=== PATIENT | male | born 1945 | race Asian ===

== ENCOUNTER 2023-06-03 13:31 | Emergency (ER) | payer BC, MEDICAID ==
[~2023-06-03] VITALS: Ht 167.6 cm; Wt 68.9 kg
[~2023-06-03 13:31] MED LIST: PRED20TA PO
[2023-06-03 14:03] VITALS: BP_SYST 139; PULSE 74; RESP 22; TEMP 98.3; O2SAT 99
[2023-06-03 15:51] VITALS: BP_SYST 139; PULSE 74; RESP 22; TEMP 98.3; O2SAT 99
== END 2023-06-03 15:52 | disposition home or self-care (01) ==
LOC: SED 13:31
DX: S00.03XA Contusion of scalp, initial encounter (principal); I10 Essential (primary) hypertension; Z79.899 Other long term (current) drug therapy; W22.8XXA Striking against or struck by other objects, initial encounter; Y93.89 Activity, other specified; Y92.89 Other specified places as the place of occurrence of the external cause; Y99.8 Other external cause status
CPT/HCPCS: 70450-TC; 76376; 99284

== ENCOUNTER 2023-06-09 15:10 | Inpatient (IN) | payer BC, MEDICAID ==
[~2023-06-09] VITALS: Ht 162.6 cm; Wt 113.9 kg
[2023-06-09 15:10] VITALS: BP_SYST 147; PULSE 107; RESP 20; TEMP 98.7; O2SAT 96
[2023-06-09 15:56] LABS: HEMOGLOBIN 14.2 g/dL (14.0-18.0); RED CELL DISTRIBUTION WIDTH 13.8 % (9.0-15.0)
[2023-06-09 16:02] LABS: BASOPHILS # (AUTO) 0.3 K/uL (0.0-0.2); BASOPHILS % (AUTO) 3.7 % (0.0-2.0); EOSINOPHILS # (AUTO) 0.4 K/uL (0.0-0.4); EOSINOPHILS % (AUTO) 5.2 % (0.0-4.0); HEMATOCRIT 40.8 % (36-54); LYMPHOCYTES % (AUTO) 13.5 % (20.5-51.5); MEAN CORPUSCULAR HEMOGLOBIN 34 pg (27-31); MEAN CORPUSCULAR HGB CONC 35 % (32-36); MEAN CORPUSCULAR VOLUME 98 fL (79.0-98.0); MONOCYTES # (AUTO) 0.4 K/uL (0.0-1.0); NEUTROPHILS # (AUTO) 5.2 K/uL (1.8-7.7); NEUTROPHILS % (AUTO) 71.6 % (40.0-70.0); PLATELET COUNT (AUTO) 213 K/uL (130-430); RED BLOOD CELL COUNT(AUTO) 4.16 MIL/uL (4.2-6.2); WHITE BLOOD COUNT (AUTO) 7.3 K/uL (4.8-10.8)
[2023-06-09 16:17] LABS: CHLORIDE 104 mmol/L (98-107); CREATININE 1.52 mg/dL (0.55-1.30); POTASSIUM 4.2 mmol/L (3.5-5.1); SODIUM SERUM 140 mmol/L (136-145)
[2023-06-09 16:30] LABS: ANION GAP 9 (5-15); CALCIUM 8.6 mg/dL (8.4-11.0); CARBON DIOXIDE 27 mmol/L (23-29); GLUCOSE 95 mg/dL (74-106)
[2023-06-09 16:34] LABS: UREA NITROGEN, BLOOD 23 mg/dL (8-21)
[2023-06-09] MEDS ORDERED: cefTRIAXone 1 GM in D5W 50 ML IV ONE (17:15)
[2023-06-09] MEDS ORDERED: hydrALAZINE HCL 20 MG/ML VIAL IVP PRN (17:45)
[2023-06-09] MEDS ORDERED: ALEN70TA27 PO (18:07)
[2023-06-09] MEDS ORDERED: AMLO5TAB92 PO (18:07)
[2023-06-09] MEDS ORDERED: VITA-285 PO (18:07)
[2023-06-09] MEDS ORDERED: TAMS0.4C96 PO (18:07)
[2023-06-09] MEDS ORDERED: ASCO500T20 PO (18:08)
[2023-06-09] MEDS ORDERED: UBID50TA3 PO (18:11)
[2023-06-09] MEDS ORDERED: [UNRECOGNIZED DRUG - CODE] PO (18:11)
[2023-06-09] MEDS ORDERED: ASCO500C18 PO (18:11)
[2023-06-09] MEDS ORDERED: cefTRIAXone 1 GM VIAL ONE (18:26)
[2023-06-09] MEDS: NACL 0.9% 1,000 ML IV SCH (18:31)
[2023-06-09] MEDS ORDERED: AZITHROMYCIN 500 MG/VIAL (ZITHROMAX) IV ONE (19:22)
[2023-06-09] MEDS: AZITHROMYCIN 500 MG in NS 250 ML IV SCH (19:23)
[2023-06-09 19:28] LABS: INFLUENZA TYPE A Negative (NEGATIVE); INFLUENZA TYPE B NEGATIVE (NEGATIVE)
[2023-06-09 19:38] LABS: RESPIRATORY SYNCYTIAL VIRUS NEGATIVE (NEGATIVE)
[2023-06-09 21:15] VITALS: BP_SYST 141; PULSE 81; RESP 20; TEMP 100.4; O2SAT 100; O2SAT 98
[2023-06-09] MEDS ORDERED: ONDANSETRON HCL 4 MG/2 ML VIAL IVP PRN (22:45)
[2023-06-09] MEDS ORDERED: HYDROcodone/ACETAMIN 5-325 MG TAB (NORCO/ VICODIN) PO PRN (22:45)
[2023-06-09] MEDS ORDERED: MORPHINE 4 MG INJ. 4 MG/ML VIAL IVP PRN (22:45)
[2023-06-09] MEDS ORDERED: HYDROcodone/ACETAMIN 10-325 MG TAB PO PRN (22:45)
[2023-06-09] MEDS: IPRATROPIUM/ALBUTEROL SULFATE 3 ML AMPUL.NEB (DUONEB) INH SCH (22:45)
[2023-06-09] MEDS ORDERED: NALOXONE HCL 0.4 MG/ML AMP (NARCAN) IVP PRN ×2 (22:45)
[2023-06-09 23:30] VITALS: BP_SYST 146; PULSE 89; O2SAT 99
[2023-06-09 23:40] VITALS: O2SAT 99
[2023-06-09] MEDS ORDERED: IPRATROPIUM/ALBUTEROL SULFATE 3 ML AMPUL.NEB (DUONEB) ONE (23:57)
[2023-06-09] MEDS: guaiFENesin 200 MG/10 ML UDC PO SCH (23:57)
[2023-06-09] MEDS: ASCORBIC ACID 500 MG TABLET PO SCH (23:58)
[2023-06-10] VITALS (9 sets, daily range): BP systolic 132–154; PULSE 78–114; RESP 16–20; TEMP 97.5–98.8; O2SAT 94–100
[2023-06-10] MEDS ORDERED: cefTRIAXone 1 GM IVPB PREMIX 50 ML IV ONE (00:24)
[2023-06-10] MEDS: guaiFENesin 200 MG/10 ML UDC PO SCH ×4 (00:30→18:53)
[2023-06-10] MEDS: cefTRIAXone 1 GM in D5W 50 ML IV SCH ×2 (00:32→23:48)
[2023-06-10] MEDS: NACL 0.9% 1,000 ML IV SCH ×3 (01:16→23:48)
[2023-06-10 05:42] LABS: BASOPHILS # (AUTO) 0.1 K/uL (0.0-0.2); BASOPHILS % (AUTO) 0.7 % (0.0-2.0); EOSINOPHILS # (AUTO) 0.3 K/uL (0.0-0.4); EOSINOPHILS % (AUTO) 3.4 % (0.0-4.0); HEMATOCRIT 39.7 % (36-54); HEMOGLOBIN 13.5 g/dL (14.0-18.0); LYMPHOCYTES # (AUTO) 1.9 K/uL (1.0-5.5); LYMPHOCYTES % (AUTO) 21.2 % (20.5-51.5); MEAN CORPUSCULAR HEMOGLOBIN 34 pg (27-31); MEAN CORPUSCULAR HGB CONC 34 % (32-36); MEAN CORPUSCULAR VOLUME 100 fL (79.0-98.0); MONOCYTES % (AUTO) 11.5 % (1.7-9.3); NEUTROPHILS # (AUTO) 5.6 K/uL (1.8-7.7); NEUTROPHILS % (AUTO) 63.2 % (40.0-70.0); PLATELET COUNT (AUTO) 186 K/uL (130-430); RED BLOOD CELL COUNT(AUTO) 3.99 MIL/uL (4.2-6.2); RED CELL DISTRIBUTION WIDTH 14.1 % (9.0-15.0); WHITE BLOOD COUNT (AUTO) 8.9 K/uL (4.8-10.8)
[2023-06-10 06:03] LABS: ALANINE AMINOTRANSFERASE 27 U/L (12-78); ALBUMIN 3.5 g/dL (3.4-4.8); ANION GAP 11 (5-15); ASPARTATE AMINOTRANSFERASE 26 U/L (10-37); CALCIUM 8.6 mg/dL (8.4-11.0); CARBON DIOXIDE 25 mmol/L (23-29); CHLORIDE 102 mmol/L (98-107); CREATININE 1.13 mg/dL (0.55-1.30); GLUCOSE 95 mg/dL (74-106); POTASSIUM 4.3 mmol/L (3.5-5.1); SODIUM SERUM 138 mmol/L (136-145); TOTAL BILIRUBIN 0.7 mg/dL (0.0-1.0); TOTAL PROTEIN, SERUM 7.6 g/dL (6.4-8.3); UREA NITROGEN, BLOOD 18 mg/dL (8-21)
[2023-06-10] MEDS: IPRATROPIUM/ALBUTEROL SULFATE 3 ML AMPUL.NEB (DUONEB) INH SCH ×2 (07:23→15:59)
[2023-06-10] MEDS: TAMSULOSIN HCL 0.4 MG CAP PO SCH (08:39)
[2023-06-10] MEDS: ASCORBIC ACID 500 MG TABLET PO SCH (08:39)
[2023-06-10] MEDS: amLODIPine BESYLATE 5 MG TABLET PO SCH (08:40)
[2023-06-10] MEDS: AZITHROMYCIN 500 MG in NS 250 ML IV SCH (18:54)
[2023-06-11] VITALS (7 sets, daily range): BP systolic 115–146; PULSE 87–98; RESP 16–22; TEMP 97.7–100.8; O2SAT 95–99
[2023-06-11] MEDS: guaiFENesin 200 MG/10 ML UDC PO SCH ×5 (00:03→23:35)
[2023-06-11] MEDS: IPRATROPIUM/ALBUTEROL SULFATE 3 ML AMPUL.NEB (DUONEB) INH SCH ×4 (00:13→23:38)
[2023-06-11 05:39] LABS: ERYTHROCYTE SEDIMENTATION RATE 27 MM/HR (0-15)
[2023-06-11 05:45] LABS: BASOPHILS % (AUTO) 0.7 % (0.0-2.0); EOSINOPHILS # (AUTO) 0.4 K/uL (0.0-0.4); EOSINOPHILS % (AUTO) 6.1 % (0.0-4.0); HEMATOCRIT 36.8 % (36-54); HEMOGLOBIN 12.6 g/dL (14.0-18.0); LYMPHOCYTES # (AUTO) 1.5 K/uL (1.0-5.5); LYMPHOCYTES % (AUTO) 22.3 % (20.5-51.5); MEAN CORPUSCULAR HEMOGLOBIN 34 pg (27-31); MEAN CORPUSCULAR HGB CONC 34 % (32-36); MEAN CORPUSCULAR VOLUME 99 fL (79.0-98.0); MONOCYTES # (AUTO) 0.6 K/uL (0.0-1.0); MONOCYTES % (AUTO) 8.4 % (1.7-9.3); NEUTROPHILS # (AUTO) 4.1 K/uL (1.8-7.7); NEUTROPHILS % (AUTO) 62.5 % (40.0-70.0); PLATELET COUNT (AUTO) 167 K/uL (130-430); RED BLOOD CELL COUNT(AUTO) 3.73 MIL/uL (4.2-6.2); RED CELL DISTRIBUTION WIDTH 13.6 % (9.0-15.0); WHITE BLOOD COUNT (AUTO) 6.6 K/uL (4.8-10.8)
[2023-06-11 06:07] LABS: ANION GAP 10 (5-15); CALCIUM 8.3 mg/dL (8.4-11.0); CARBON DIOXIDE 25 mmol/L (23-29); CHLORIDE 105 mmol/L (98-107); CREATININE 1.05 mg/dL (0.55-1.30); GLUCOSE 105 mg/dL (74-106); POTASSIUM 3.9 mmol/L (3.5-5.1); SODIUM SERUM 140 mmol/L (136-145); UREA NITROGEN, BLOOD 12 mg/dL (8-21)
[2023-06-11] MEDS: NACL 0.9% 1,000 ML IV SCH ×2 (07:36→11:35)
[2023-06-11] MEDS: ASCORBIC ACID 500 MG TABLET PO SCH (10:01)
[2023-06-11] MEDS: TAMSULOSIN HCL 0.4 MG CAP PO SCH (10:01)
[2023-06-11] MEDS: amLODIPine BESYLATE 5 MG TABLET PO SCH (10:02)
[2023-06-11] MEDS: AZITHROMYCIN 500 MG in NS 250 ML IV SCH (17:57)
[2023-06-11] MEDS: ACETAMINOPHEN 325 MG TABLET PO PRN (20:52)
[2023-06-11] MEDS: cefTRIAXone 1 GM in D5W 50 ML IV SCH (23:35)
[2023-06-12] VITALS (11 sets, daily range): BP systolic 120–148; PULSE 92–121; RESP 14–20; TEMP 98.3–100.9; O2SAT 90–100
[2023-06-12 05:46] LABS: ERYTHROCYTE SEDIMENTATION RATE 20 MM/HR (0-15)
[2023-06-12 05:54] LABS: BASOPHILS % (AUTO) 0.8 % (0.0-2.0); EOSINOPHILS # (AUTO) 0.4 K/uL (0.0-0.4); EOSINOPHILS % (AUTO) 6.6 % (0.0-4.0); HEMATOCRIT 34.7 % (36-54); HEMOGLOBIN 11.9 g/dL (14.0-18.0); LYMPHOCYTES # (AUTO) 1.4 K/uL (1.0-5.5); LYMPHOCYTES % (AUTO) 23.2 % (20.5-51.5); MEAN CORPUSCULAR HEMOGLOBIN 34 pg (27-31); MEAN CORPUSCULAR HGB CONC 34 % (32-36); MEAN CORPUSCULAR VOLUME 99 fL (79.0-98.0); MONOCYTES # (AUTO) 0.6 K/uL (0.0-1.0); MONOCYTES % (AUTO) 9.8 % (1.7-9.3); NEUTROPHILS # (AUTO) 3.6 K/uL (1.8-7.7); NEUTROPHILS % (AUTO) 59.6 % (40.0-70.0); PLATELET COUNT (AUTO) 154 K/uL (130-430); RED BLOOD CELL COUNT(AUTO) 3.52 MIL/uL (4.2-6.2); RED CELL DISTRIBUTION WIDTH 13.6 % (9.0-15.0)
[2023-06-12 06:27] LABS: ANION GAP 11 (5-15); CALCIUM 8.1 mg/dL (8.4-11.0); CARBON DIOXIDE 24 mmol/L (23-29); CHLORIDE 103 mmol/L (98-107); CREATININE 1.07 mg/dL (0.55-1.30); GLUCOSE 97 mg/dL (74-106); POTASSIUM 3.5 mmol/L (3.5-5.1); SODIUM SERUM 138 mmol/L (136-145); UREA NITROGEN, BLOOD 13 mg/dL (8-21)
[2023-06-12] MEDS: NACL 0.9% 1,000 ML IV SCH (06:37)
[2023-06-12] MEDS: guaiFENesin 200 MG/10 ML UDC PO SCH ×3 (06:37→20:31)
[2023-06-12] MEDS: IPRATROPIUM/ALBUTEROL SULFATE 3 ML AMPUL.NEB (DUONEB) INH SCH ×4 (07:16→20:51)
[2023-06-12] MEDS ORDERED: LEVO250T73 PO (09:58)
[2023-06-12] MEDS: TAMSULOSIN HCL 0.4 MG CAP PO SCH (10:20)
[2023-06-12] MEDS: ASCORBIC ACID 500 MG TABLET PO SCH (10:20)
[2023-06-12] MEDS: amLODIPine BESYLATE 5 MG TABLET PO SCH (10:20)
[2023-06-12] MEDS: ACETAMINOPHEN 325 MG TABLET PO PRN ×2 (11:24→22:58)
[2023-06-12] MEDS: AZITHROMYCIN 500 MG in NS 250 ML IV SCH (20:31)
[2023-06-12] MEDS: cefTRIAXone 1 GM in D5W 50 ML IV SCH (22:58)
[2023-06-13] VITALS (13 sets, daily range): BP systolic 108–141; PULSE 76–98; RESP 16–20; TEMP 98.1–100.2; O2SAT 6–98
[2023-06-13] MEDS: IPRATROPIUM/ALBUTEROL SULFATE 3 ML AMPUL.NEB (DUONEB) INH SCH ×6 (03:56→23:27)
[2023-06-13] MEDS: guaiFENesin 200 MG/10 ML UDC PO SCH ×4 (05:40→18:37)
[2023-06-13 07:03] LABS: ANION GAP 9 (5-15); CALCIUM 7.8 mg/dL (8.4-11.0); CARBON DIOXIDE 25 mmol/L (23-29); CHLORIDE 102 mmol/L (98-107); CREATININE 0.99 mg/dL (0.55-1.30); GLUCOSE 98 mg/dL (74-106); SODIUM SERUM 136 mmol/L (136-145); UREA NITROGEN, BLOOD 14 mg/dL (8-21)
[2023-06-13 07:22] LABS: BASOPHILS % (AUTO) 0.6 % (0.0-2.0); EOSINOPHILS # (AUTO) 0.2 K/uL (0.0-0.4); EOSINOPHILS % (AUTO) 2.9 % (0.0-4.0); HEMATOCRIT 35.5 % (36-54); HEMOGLOBIN 12.2 g/dL (14.0-18.0); LYMPHOCYTES # (AUTO) 1.6 K/uL (1.0-5.5); LYMPHOCYTES % (AUTO) 26.5 % (20.5-51.5); MEAN CORPUSCULAR HEMOGLOBIN 34 pg (27-31); MEAN CORPUSCULAR HGB CONC 34 % (32-36); MEAN CORPUSCULAR VOLUME 99 fL (79.0-98.0); MONOCYTES # (AUTO) 0.7 K/uL (0.0-1.0); MONOCYTES % (AUTO) 11.2 % (1.7-9.3); NEUTROPHILS # (AUTO) 3.5 K/uL (1.8-7.7); NEUTROPHILS % (AUTO) 58.8 % (40.0-70.0); PLATELET COUNT (AUTO) 149 K/uL (130-430); RED CELL DISTRIBUTION WIDTH 13.3 % (9.0-15.0)
[2023-06-13 07:36] LABS: ERYTHROCYTE SEDIMENTATION RATE 71 MM/HR (0-15)
[2023-06-13] MEDS: amLODIPine BESYLATE 5 MG TABLET PO SCH (09:37)
[2023-06-13] MEDS: TAMSULOSIN HCL 0.4 MG CAP PO SCH (09:37)
[2023-06-13] MEDS: ASCORBIC ACID 500 MG TABLET PO SCH (09:38)
[2023-06-13] MEDS: ACETAMINOPHEN 325 MG TABLET PO PRN ×2 (12:15→20:59)
[2023-06-13] MEDS: PIPERACILLIN/TAZO 3.375/DEX-IS 50 ML IV SCH (16:20)
[2023-06-13] MEDS ORDERED: POLYETHYLENE GLYCOL 3350, 17 GM/ POWD.PACK PO ONE (18:45)
[2023-06-13] MEDS: DOCUSATE SODIUM 100 MG CAPSULE PO SCH (21:00)
[2023-06-14] VITALS (10 sets, daily range): BP systolic 120–134; PULSE 82–93; RESP 18–20; TEMP 98–98.7; O2SAT 94–98
[2023-06-14] MEDS: guaiFENesin 200 MG/10 ML UDC PO SCH ×4 (00:06→17:40)
[2023-06-14] MEDS: PIPERACILLIN/TAZO 3.375/DEX-IS 50 ML IV SCH ×3 (00:06→15:27)
[2023-06-14] MEDS: IPRATROPIUM/ALBUTEROL SULFATE 3 ML AMPUL.NEB (DUONEB) INH SCH ×6 (03:41→23:35)
[2023-06-14 06:44] LABS: BASOPHILS % (AUTO) 0.5 % (0.0-2.0); EOSINOPHILS # (AUTO) 0.6 K/uL (0.0-0.4); EOSINOPHILS % (AUTO) 11.5 % (0.0-4.0); HEMATOCRIT 32.4 % (36-54); HEMOGLOBIN 11.2 g/dL (14.0-18.0); LYMPHOCYTES # (AUTO) 1.9 K/uL (1.0-5.5); LYMPHOCYTES % (AUTO) 39.7 % (20.5-51.5); MEAN CORPUSCULAR HEMOGLOBIN 34 pg (27-31); MEAN CORPUSCULAR HGB CONC 35 % (32-36); MEAN CORPUSCULAR VOLUME 97 fL (79.0-98.0); MONOCYTES # (AUTO) 0.5 K/uL (0.0-1.0); MONOCYTES % (AUTO) 11.3 % (1.7-9.3); NEUTROPHILS # (AUTO) 1.8 K/uL (1.8-7.7); PLATELET COUNT (AUTO) 142 K/uL (130-430); RED BLOOD CELL COUNT(AUTO) 3.35 MIL/uL (4.2-6.2); RED CELL DISTRIBUTION WIDTH 13.4 % (9.0-15.0); WHITE BLOOD COUNT (AUTO) 4.8 K/uL (4.8-10.8)
[2023-06-14 07:21] LABS: ALANINE AMINOTRANSFERASE 36 U/L (12-78); ALBUMIN 2.6 g/dL (3.4-4.8); ANION GAP 9 (5-15); ASPARTATE AMINOTRANSFERASE 32 U/L (10-37); CARBON DIOXIDE 25 mmol/L (23-29); CHLORIDE 102 mmol/L (98-107); CREATININE 1.22 mg/dL (0.55-1.30); GLUCOSE 109 mg/dL (74-106); POTASSIUM 3.7 mmol/L (3.5-5.1); SODIUM SERUM 136 mmol/L (136-145); TOTAL BILIRUBIN 0.5 mg/dL (0.0-1.0); TOTAL PROTEIN, SERUM 6.4 g/dL (6.4-8.3); UREA NITROGEN, BLOOD 17 mg/dL (8-21)
[2023-06-14] MEDS: amLODIPine BESYLATE 5 MG TABLET PO SCH (09:13)
[2023-06-14] MEDS: ASCORBIC ACID 500 MG TABLET PO SCH (09:13)
[2023-06-14] MEDS: POLYETHYLENE GLYCOL 3350, 17 GM/ POWD.PACK PO SCH (09:14)
[2023-06-14] MEDS: TAMSULOSIN HCL 0.4 MG CAP PO SCH (09:14)
[2023-06-14] MEDS: DOCUSATE SODIUM 100 MG CAPSULE PO SCH ×2 (09:14→21:36)
[2023-06-14] MEDS ORDERED: IPRATROPIUM/ALBUTEROL SULFATE 3 ML AMPUL.NEB (DUONEB) ONE (09:36)
[2023-06-15] VITALS (12 sets, daily range): BP systolic 120–154; PULSE 87–101; RESP 16–20; TEMP 97.6–98.8; O2SAT 91–100
[2023-06-15] MEDS: guaiFENesin 200 MG/10 ML UDC PO SCH ×3 (00:16→14:17)
[2023-06-15] MEDS: PIPERACILLIN/TAZO 3.375/DEX-IS 50 ML IV SCH ×3 (00:16→15:35)
[2023-06-15] MEDS: IPRATROPIUM/ALBUTEROL SULFATE 3 ML AMPUL.NEB (DUONEB) INH SCH ×6 (03:40→23:24)
[2023-06-15 08:05] LABS: ANION GAP 8 (5-15); CALCIUM 7.6 mg/dL (8.4-11.0); CARBON DIOXIDE 26 mmol/L (23-29); CHLORIDE 100 mmol/L (98-107); CREATININE 0.88 mg/dL (0.55-1.30); GLUCOSE 89 mg/dL (74-106); POTASSIUM 3.9 mmol/L (3.5-5.1); SODIUM SERUM 134 mmol/L (136-145); UREA NITROGEN, BLOOD 14 mg/dL (8-21)
[2023-06-15 08:18] LABS: BASOPHILS % (AUTO) 0.7 % (0.0-2.0); EOSINOPHILS # (AUTO) 0.5 K/uL (0.0-0.4); HEMATOCRIT 34.2 % (36-54); HEMOGLOBIN 11.9 g/dL (14.0-18.0); LYMPHOCYTES # (AUTO) 1.7 K/uL (1.0-5.5); LYMPHOCYTES % (AUTO) 32.6 % (20.5-51.5); MEAN CORPUSCULAR HEMOGLOBIN 34 pg (27-31); MEAN CORPUSCULAR HGB CONC 35 % (32-36); MEAN CORPUSCULAR VOLUME 97 fL (79.0-98.0); MONOCYTES # (AUTO) 0.5 K/uL (0.0-1.0); MONOCYTES % (AUTO) 9.9 % (1.7-9.3); NEUTROPHILS # (AUTO) 2.5 K/uL (1.8-7.7); NEUTROPHILS % (AUTO) 46.8 % (40.0-70.0); PLATELET COUNT (AUTO) 169 K/uL (130-430); RED BLOOD CELL COUNT(AUTO) 3.52 MIL/uL (4.2-6.2); RED CELL DISTRIBUTION WIDTH 13.7 % (9.0-15.0); WHITE BLOOD COUNT (AUTO) 5.3 K/uL (4.8-10.8)
[2023-06-15 08:21] LABS: ERYTHROCYTE SEDIMENTATION RATE 63 MM/HR (0-15)
[2023-06-15] MEDS ORDERED: SODIUM PHOSPHATE,MONO-DIBASIC 133 ML ENEMA RC ONE (09:00)
[2023-06-15] MEDS: POLYETHYLENE GLYCOL 3350, 17 GM/ POWD.PACK PO SCH (09:08)
[2023-06-15] MEDS: TAMSULOSIN HCL 0.4 MG CAP PO SCH (09:08)
[2023-06-15] MEDS: DOCUSATE SODIUM 100 MG CAPSULE PO SCH ×2 (09:08→22:08)
[2023-06-15] MEDS: amLODIPine BESYLATE 5 MG TABLET PO SCH (09:17)
[2023-06-15] MEDS: ASCORBIC ACID 500 MG TABLET PO SCH (09:29)
[2023-06-16] VITALS (13 sets, daily range): BP systolic 112–138; PULSE 75–90; RESP 14–18; TEMP 97.6–98.6; O2SAT 95–98
[2023-06-16] MEDS: PIPERACILLIN/TAZO 3.375/DEX-IS 50 ML IV SCH ×3 (00:11→17:27)
[2023-06-16] MEDS: guaiFENesin 200 MG/10 ML UDC PO SCH ×4 (00:15→19:03)
[2023-06-16] MEDS: IPRATROPIUM/ALBUTEROL SULFATE 3 ML AMPUL.NEB (DUONEB) INH SCH ×6 (03:00→23:56)
[2023-06-16 07:23] LABS: BASOPHILS % (AUTO) 0.5 % (0.0-2.0); EOSINOPHILS # (AUTO) 0.4 K/uL (0.0-0.4); EOSINOPHILS % (AUTO) 6.7 % (0.0-4.0); HEMATOCRIT 35.6 % (36-54); HEMOGLOBIN 12.4 g/dL (14.0-18.0); LYMPHOCYTES # (AUTO) 1.4 K/uL (1.0-5.5); LYMPHOCYTES % (AUTO) 22.2 % (20.5-51.5); MEAN CORPUSCULAR HEMOGLOBIN 34 pg (27-31); MEAN CORPUSCULAR HGB CONC 35 % (32-36); MEAN CORPUSCULAR VOLUME 97 fL (79.0-98.0); MONOCYTES # (AUTO) 0.4 K/uL (0.0-1.0); NEUTROPHILS % (AUTO) 63.6 % (40.0-70.0); PLATELET COUNT (AUTO) 192 K/uL (130-430); RED BLOOD CELL COUNT(AUTO) 3.67 MIL/uL (4.2-6.2); RED CELL DISTRIBUTION WIDTH 13.6 % (9.0-15.0); WHITE BLOOD COUNT (AUTO) 6.2 K/uL (4.8-10.8)
[2023-06-16 07:27] LABS: ANION GAP 10 (5-15); CARBON DIOXIDE 24 mmol/L (23-29); CHLORIDE 100 mmol/L (98-107); CREATININE 1.02 mg/dL (0.55-1.30); GLUCOSE 85 mg/dL (74-106); POTASSIUM 3.9 mmol/L (3.5-5.1); SODIUM SERUM 134 mmol/L (136-145); UREA NITROGEN, BLOOD 13 mg/dL (8-21)
[2023-06-16 07:42] LABS: ERYTHROCYTE SEDIMENTATION RATE 72 MM/HR (0-15)
[2023-06-16] MEDS: amLODIPine BESYLATE 5 MG TABLET PO SCH (09:03)
[2023-06-16] MEDS: ASCORBIC ACID 500 MG TABLET PO SCH (09:03)
[2023-06-16] MEDS: POLYETHYLENE GLYCOL 3350, 17 GM/ POWD.PACK PO SCH (09:03)
[2023-06-16] MEDS: DOCUSATE SODIUM 100 MG CAPSULE PO SCH ×2 (09:04→20:55)
[2023-06-16] MEDS: TAMSULOSIN HCL 0.4 MG CAP PO SCH (09:04)
[2023-06-17] VITALS (12 sets, daily range): BP systolic 108–137; PULSE 74–90; RESP 16–20; TEMP 96.5–98; O2SAT 93–98
[2023-06-17] MEDS: guaiFENesin 200 MG/10 ML UDC PO SCH ×5 (00:31→23:45)
[2023-06-17] MEDS: PIPERACILLIN/TAZO 3.375/DEX-IS 50 ML IV SCH ×4 (00:31→23:45)
[2023-06-17] MEDS: IPRATROPIUM/ALBUTEROL SULFATE 3 ML AMPUL.NEB (DUONEB) INH SCH ×6 (03:24→23:10)
[2023-06-17 05:46] LABS: ERYTHROCYTE SEDIMENTATION RATE 59 MM/HR (0-15)
[2023-06-17 05:52] LABS: BASOPHILS % (AUTO) 0.6 % (0.0-2.0); EOSINOPHILS # (AUTO) 0.4 K/uL (0.0-0.4); EOSINOPHILS % (AUTO) 6.5 % (0.0-4.0); HEMATOCRIT 34.1 % (36-54); HEMOGLOBIN 11.9 g/dL (14.0-18.0); LYMPHOCYTES # (AUTO) 1.4 K/uL (1.0-5.5); LYMPHOCYTES % (AUTO) 24.3 % (20.5-51.5); MEAN CORPUSCULAR HEMOGLOBIN 34 pg (27-31); MEAN CORPUSCULAR HGB CONC 35 % (32-36); MEAN CORPUSCULAR VOLUME 97 fL (79.0-98.0); MONOCYTES # (AUTO) 0.4 K/uL (0.0-1.0); MONOCYTES % (AUTO) 7.2 % (1.7-9.3); NEUTROPHILS # (AUTO) 3.6 K/uL (1.8-7.7); NEUTROPHILS % (AUTO) 61.4 % (40.0-70.0); PLATELET COUNT (AUTO) 202 K/uL (130-430); RED BLOOD CELL COUNT(AUTO) 3.51 MIL/uL (4.2-6.2); RED CELL DISTRIBUTION WIDTH 13.6 % (9.0-15.0); WHITE BLOOD COUNT (AUTO) 5.8 K/uL (4.8-10.8)
[2023-06-17 07:53] LABS: ALANINE AMINOTRANSFERASE 59 U/L (12-78); ALBUMIN 2.9 g/dL (3.4-4.8); ANION GAP 12 (5-15); ASPARTATE AMINOTRANSFERASE 45 U/L (10-37); CALCIUM 8.7 mg/dL (8.4-11.0); CARBON DIOXIDE 24 mmol/L (23-29); CHLORIDE 105 mmol/L (98-107); CREATININE 1.18 mg/dL (0.55-1.30); GLUCOSE 98 mg/dL (74-106); SODIUM SERUM 141 mmol/L (136-145); TOTAL BILIRUBIN 0.5 mg/dL (0.0-1.0); TOTAL PROTEIN, SERUM 7.1 g/dL (6.4-8.3); UREA NITROGEN, BLOOD 17 mg/dL (8-21)
[2023-06-17] MEDS: DOCUSATE SODIUM 100 MG CAPSULE PO SCH ×2 (09:30→21:45)
[2023-06-17] MEDS: POLYETHYLENE GLYCOL 3350, 17 GM/ POWD.PACK PO SCH (09:30)
[2023-06-17] MEDS: TAMSULOSIN HCL 0.4 MG CAP PO SCH (09:30)
[2023-06-17] MEDS: amLODIPine BESYLATE 5 MG TABLET PO SCH (09:31)
[2023-06-17] MEDS: ASCORBIC ACID 500 MG TABLET PO SCH (09:32)
[2023-06-18] VITALS (9 sets, daily range): BP systolic 117–134; PULSE 72–85; RESP 17–20; TEMP 97.4–98.6; O2SAT 95–98
[2023-06-18] MEDS: IPRATROPIUM/ALBUTEROL SULFATE 3 ML AMPUL.NEB (DUONEB) INH SCH ×3 (03:58→11:16)
[2023-06-18] MEDS: guaiFENesin 200 MG/10 ML UDC PO SCH ×2 (05:00→12:44)
[2023-06-18] MEDS: POLYETHYLENE GLYCOL 3350, 17 GM/ POWD.PACK PO SCH (08:28)
[2023-06-18] MEDS: ASCORBIC ACID 500 MG TABLET PO SCH (08:28)
[2023-06-18] MEDS: TAMSULOSIN HCL 0.4 MG CAP PO SCH (08:28)
[2023-06-18] MEDS: amLODIPine BESYLATE 5 MG TABLET PO SCH (08:29)
[2023-06-18] MEDS: DOCUSATE SODIUM 100 MG CAPSULE PO SCH (08:29)
[2023-06-18] MEDS: PIPERACILLIN/TAZO 3.375/DEX-IS 50 ML IV SCH (08:30)
== END 2023-06-18 15:00 | disposition home health service (06) | DRG 193 ==
LOC: SED 15:10 → STU 17:32 → SMU 06-11 19:39 → STU 06-12 23:36 → SMU 06-15 12:00
PROVIDERS: ADMIT Family Medicine; ATTEND Family Medicine
DX: J18.9 Pneumonia, unspecified organism (principal); E43 Unspecified severe protein-calorie malnutrition; J96.00 Acute respiratory failure, unspecified whether with hypoxia or hypercapnia; N17.9 Acute kidney failure, unspecified; E87.1 Hypo-osmolality and hyponatremia; Z68.42 Body mass index [BMI] 45.0-49.9, adult; F03.90 Unspecified dementia, unspecified severity, without behavioral disturbance, psychotic disturbance, mood disturbance, and anxiety; G35 Multiple sclerosis; E88.09 Other disorders of plasma-protein metabolism, not elsewhere classified; I10 Essential (primary) hypertension; N40.0 Benign prostatic hyperplasia without lower urinary tract symptoms; E83.51 Hypocalcemia; E83.52 Hypercalcemia; D64.9 Anemia, unspecified; Z20.822 Contact with and (suspected) exposure to COVID-19
CPT/HCPCS: 36415; 71045; 80048; 80053; 85025; 85651-TC; 87040; 87420; 94640; 94760; 96365; 97110-GO; 97110-GP; 97112-GP; 97530-GO; 97530-GP; 97535-GO; 99285; G0378; J0456; J0696; J2543; J7050; J7060

== ENCOUNTER 2024-01-14 16:42 | Inpatient (IN) | payer BC, MEDICAID ==
[~2024-01-14] VITALS: Ht 165.1 cm; Wt 72.6 kg
[~2024-01-14 16:42] MED LIST changes: +ALEN70TA27 PO; +AMLO5TAB92 PO; +ASCO500C18 PO; +ASCO500T20 PO; +LEVO250T73 PO; +TAMS0.4C96 PO; +UBID50TA3 PO; +VITA-285 PO; +[UNRECOGNIZED DRUG - CODE] PO
[2024-01-14 16:44] VITALS: BP_SYST 128; PULSE 105; RESP 14; TEMP 102.3; O2SAT 99
[2024-01-14] MEDS: NS 1000 ML IV.SOLN IV ONE (17:28)
[2024-01-14] MEDS: ACETAMINOPHEN 650 MG SUPP.RECT RC ONE (17:28)
[2024-01-14 17:29] LABS: BASOPHILS % (AUTO) 0.3 % (0.0-2.0); EOSINOPHILS % (AUTO) 0.7 % (0.0-4.0); HEMOGLOBIN 14.1 g/dL (14.0-18.0); LYMPHOCYTES # (AUTO) 0.6 K/uL (1.0-5.5); LYMPHOCYTES % (AUTO) 12.3 % (20.5-51.5); MEAN CORPUSCULAR HEMOGLOBIN 34 pg (27-31); MEAN CORPUSCULAR HGB CONC 34 % (32-36); MEAN CORPUSCULAR VOLUME 99 fL (79.0-98.0); MONOCYTES # (AUTO) 0.7 K/uL (0.0-1.0); MONOCYTES % (AUTO) 13.3 % (1.7-9.3); NEUTROPHILS # (AUTO) 3.7 K/uL (1.8-7.7); NEUTROPHILS % (AUTO) 73.4 % (40.0-70.0); PLATELET COUNT (AUTO) 149 K/uL (130-430); RED BLOOD CELL COUNT(AUTO) 4.16 MIL/uL (4.2-6.2); RED CELL DISTRIBUTION WIDTH 14.6 % (9.0-15.0)
[2024-01-14 18:08] LABS: PROTHROMBIN TIME 10.6 SECS (9.5-12.5)
[2024-01-14] MEDS ORDERED: [UNRECOGNIZED DRUG - CODE] RIGHT EYE (18:11)
[2024-01-14] MEDS ORDERED: MYCOLOG15 TP (18:11)
[2024-01-14] MEDS ORDERED: OFLO5DRO6 RIGHT EYE (18:11)
[2024-01-14 18:13] LABS: ALANINE AMINOTRANSFERASE 14 U/L (12-78); ALBUMIN 3.8 g/dL (3.4-4.8); ANION GAP 13 (5-15); ASPARTATE AMINOTRANSFERASE 23 U/L (10-37); BILIRUBIN,DIRECT 0.1 mg/dL (0.0-0.3); CALCIUM 8.4 mg/dL (8.4-11.0); CARBON DIOXIDE 23 mmol/L (23-29); CHLORIDE 102 mmol/L (98-107); CREATININE 1.21 mg/dL (0.55-1.30); GLUCOSE 106 mg/dL (74-106); POTASSIUM 3.6 mmol/L (3.5-5.1); SODIUM SERUM 138 mmol/L (136-145); TOTAL BILIRUBIN 0.7 mg/dL (0.0-1.0); TOTAL PROTEIN, SERUM 7.8 g/dL (6.4-8.3); UREA NITROGEN, BLOOD 12 mg/dL (8-21)
[2024-01-14 18:15] LABS: INFLUENZA TYPE A Negative (NEGATIVE); INFLUENZA TYPE B NEGATIVE (NEGATIVE)
[2024-01-14] MEDS ORDERED: ONDANSETRON HCL 4 MG/2 ML VIAL IVP PRN (19:45)
[2024-01-14] MEDS: D5/0.45 NS 1,000 ML IV SCH (21:00)
[2024-01-14] MEDS: ASPIRIN 81 MG TAB.CHEW PO ONE (21:05)
[2024-01-14 21:24] LABS: BILIRUBIN,URINE NEGATIVE (NEGATIVE); BLOOD, URINE NEGATIVE (NEGATIVE); CLARITY/URINE CLEAR (CLEAR); COLOR,URINE YELLOW (YELLOW); GLUCOSE,URINE NEGATIVE (NEGATIVE); KETONES,URINE NEGATIVE (NEGATIVE); LEUKOCYTE ESTERASE ,URINE NEGATIVE (NEGATIVE); NITRITE, URINE NEGATIVE (NEGATIVE); PROTEIN URINE NEGATIVE (NEGATIVE); UROBILINOGEN,URINE 0.2 (0.2-1.0)
[2024-01-15] MEDS ORDERED: ACETAMINOPHEN 650 MG SUPP.RECT RC PRN (09:00)
[2024-01-15] MEDS ORDERED: ONDANSETRON HCL 4 MG/2 ML VIAL IVP PRN (09:00)
[2024-01-15] MEDS: ENOXAPARIN SODIUM 40 MG/0.4 ML SYRINGE SUBCUT SCH (10:03)
[2024-01-15] MEDS: ACETAMINOPHEN 325 MG TABLET PO PRN (10:04)
[2024-01-15] MEDS: *LOVENOX0.75MG/KG Q12H/PHARMACY XX ONE (11:00)
[2024-01-15] MEDS: DEXAMETHASONE SOD PHOSPHATE 10 MG/ML VIAL IVP SCH (14:11)
[2024-01-15 14:45] VITALS: BP_SYST 149; PULSE 58; RESP 16; TEMP 98.6; O2SAT 99
[2024-01-15 16:05] VITALS: BP_SYST 125; PULSE 77; RESP 18; TEMP 98.5; O2SAT 99
[2024-01-15 19:00] VITALS: O2SAT 97
[2024-01-15 20:00] VITALS: BP_SYST 150; PULSE 56; RESP 19; TEMP 97.8
[2024-01-15] MEDS: ENOXAPARIN SODIUM 60 MG/0.6 ML SYRINGE SUBCUT SCH (20:54)
[2024-01-16] VITALS (7 sets, daily range): BP systolic 126–157; PULSE 53–76; RESP 16–19; TEMP 96.8–98.3; O2SAT 97–99
[2024-01-16 07:35] LABS: BASOPHILS % (AUTO) 0.2 % (0.0-2.0); HEMATOCRIT 41.6 % (36-54); LYMPHOCYTES # (AUTO) 1.4 K/uL (1.0-5.5); LYMPHOCYTES % (AUTO) 28.1 % (20.5-51.5); MEAN CORPUSCULAR HEMOGLOBIN 34 pg (27-31); MEAN CORPUSCULAR HGB CONC 34 % (32-36); MEAN CORPUSCULAR VOLUME 100 fL (79.0-98.0); MONOCYTES # (AUTO) 0.4 K/uL (0.0-1.0); MONOCYTES % (AUTO) 7.1 % (1.7-9.3); NEUTROPHILS # (AUTO) 3.3 K/uL (1.8-7.7); NEUTROPHILS % (AUTO) 64.6 % (40.0-70.0); PLATELET COUNT (AUTO) 126 K/uL (130-430); RED BLOOD CELL COUNT(AUTO) 4.16 MIL/uL (4.2-6.2); RED CELL DISTRIBUTION WIDTH 14.5 % (9.0-15.0); WHITE BLOOD COUNT (AUTO) 5.1 K/uL (4.8-10.8)
[2024-01-16 08:17] LABS: ALANINE AMINOTRANSFERASE 26 U/L (12-78); ALBUMIN 3.2 g/dL (3.4-4.8); ANION GAP 12 (5-15); ASPARTATE AMINOTRANSFERASE 32 U/L (10-37); CARBON DIOXIDE 24 mmol/L (23-29); CHLORIDE 103 mmol/L (98-107); CREATININE 0.91 mg/dL (0.55-1.30); GLUCOSE 119 mg/dL (74-106); POTASSIUM 3.3 mmol/L (3.5-5.1); SODIUM SERUM 139 mmol/L (136-145); TOTAL BILIRUBIN 0.3 mg/dL (0.0-1.0); TOTAL PROTEIN, SERUM 7.3 g/dL (6.4-8.3); UREA NITROGEN, BLOOD 13 mg/dL (8-21)
[2024-01-16] MEDS: PANTOPRAZOLE SODIUM 40 MG/VIAL (PROTONIX) IVP SCH (08:51)
[2024-01-16] MEDS ORDERED: PATIENT'S OWN TABLET JT SCH (13:00)
[2024-01-16] MEDS: EENT OP SCH (14:13)
[2024-01-16] MEDS: OFLOXACIN 0.3% OPHTHALMIC DROPS 5 ML OP SCH (14:14)
[2024-01-17 02:03] VITALS: BP_SYST 135; PULSE 56; RESP 17; TEMP 97.7; O2SAT 96
[2024-01-17 07:14] LABS: BASOPHILS % (AUTO) 0.1 % (0.0-2.0); HEMATOCRIT 40.8 % (36-54); HEMOGLOBIN 13.7 g/dL (14.0-18.0); LYMPHOCYTES # (AUTO) 1.8 K/uL (1.0-5.5); MEAN CORPUSCULAR HEMOGLOBIN 33 pg (27-31); MEAN CORPUSCULAR HGB CONC 34 % (32-36); MEAN CORPUSCULAR VOLUME 99 fL (79.0-98.0); MONOCYTES # (AUTO) 0.7 K/uL (0.0-1.0); MONOCYTES % (AUTO) 9.8 % (1.7-9.3); NEUTROPHILS # (AUTO) 4.3 K/uL (1.8-7.7); NEUTROPHILS % (AUTO) 63.1 % (40.0-70.0); PLATELET COUNT (AUTO) 134 K/uL (130-430); RED BLOOD CELL COUNT(AUTO) 4.13 MIL/uL (4.2-6.2); RED CELL DISTRIBUTION WIDTH 14.3 % (9.0-15.0); WHITE BLOOD COUNT (AUTO) 6.8 K/uL (4.8-10.8)
[2024-01-17 07:33] LABS: ALANINE AMINOTRANSFERASE 27 U/L (12-78); ALBUMIN 3.1 g/dL (3.4-4.8); ANION GAP 11 (5-15); ASPARTATE AMINOTRANSFERASE 26 U/L (10-37); CALCIUM 8.1 mg/dL (8.4-11.0); CARBON DIOXIDE 26 mmol/L (23-29); CHLORIDE 105 mmol/L (98-107); CREATININE 0.91 mg/dL (0.55-1.30); GLUCOSE 112 mg/dL (74-106); POTASSIUM 3.8 mmol/L (3.5-5.1); SODIUM SERUM 142 mmol/L (136-145); TOTAL BILIRUBIN 0.3 mg/dL (0.0-1.0); UREA NITROGEN, BLOOD 15 mg/dL (8-21)
[2024-01-17 07:53] LABS: ERYTHROCYTE SEDIMENTATION RATE 38 MM/HR (0-15)
[2024-01-17 08:00] VITALS: BP_SYST 158; RESP 18; TEMP 97.5
[2024-01-17 12:51] VITALS: BP_SYST 148; PULSE 62; RESP 17; TEMP 97.6; O2SAT 97
[2024-01-17] MEDS: CIPROFLOXACIN HCL 0.3% EYE DRP 2.5 ML DROPS OP SCH (16:04)
[2024-01-17 16:52] VITALS: BP_SYST 150; PULSE 65; RESP 19; TEMP 97.4; O2SAT 96
[2024-01-17 19:00] VITALS: O2SAT 98
[2024-01-17 20:00] VITALS: BP_SYST 120; PULSE 70; RESP 19; TEMP 97.7; O2SAT 98
[2024-01-18] VITALS: BP_SYST 146; PULSE 59; RESP 16; O2SAT 98
[2024-01-18 08:10] VITALS: BP_SYST 150; PULSE 57; RESP 15; TEMP 98; O2SAT 95
[2024-01-18 08:20] LABS: EOSINOPHILS % (AUTO) 0.1 % (0.0-4.0); HEMOGLOBIN 14.2 g/dL (14.0-18.0); LYMPHOCYTES # (AUTO) 2.8 K/uL (1.0-5.5); MONOCYTES # (AUTO) 0.6 K/uL (0.0-1.0); RED BLOOD CELL COUNT(AUTO) 4.28 MIL/uL (4.2-6.2); RED CELL DISTRIBUTION WIDTH 14.3 % (9.0-15.0)
[2024-01-18 08:22] LABS: ALANINE AMINOTRANSFERASE 34 U/L (12-78); ALBUMIN 2.9 g/dL (3.4-4.8); ANION GAP 10 (5-15); ASPARTATE AMINOTRANSFERASE 34 U/L (10-37); CALCIUM 7.8 mg/dL (8.4-11.0); CARBON DIOXIDE 25 mmol/L (23-29); CHLORIDE 104 mmol/L (98-107); CREATININE 0.96 mg/dL (0.55-1.30); GLUCOSE 109 mg/dL (74-106); POTASSIUM 3.3 mmol/L (3.5-5.1); SODIUM SERUM 139 mmol/L (136-145); TOTAL BILIRUBIN 0.3 mg/dL (0.0-1.0); TOTAL PROTEIN, SERUM 6.6 g/dL (6.4-8.3); UREA NITROGEN, BLOOD 14 mg/dL (8-21)
[2024-01-18 08:23] LABS: BASOPHILS % (AUTO) 0.3 % (0.0-2.0); HEMATOCRIT 42.3 % (36-54); LYMPHOCYTES % (AUTO) 40.4 % (20.5-51.5); MEAN CORPUSCULAR HEMOGLOBIN 33 pg (27-31); MEAN CORPUSCULAR HGB CONC 34 % (32-36); MEAN CORPUSCULAR VOLUME 99 fL (79.0-98.0); MONOCYTES % (AUTO) 8.2 % (1.7-9.3); NEUTROPHILS # (AUTO) 3.6 K/uL (1.8-7.7); PLATELET COUNT (AUTO) 138 K/uL (130-430)
[2024-01-18 08:29] LABS: ERYTHROCYTE SEDIMENTATION RATE 30 MM/HR (0-15)
[2024-01-18 09:30] VITALS: O2SAT 95
[2024-01-18 12:28] VITALS: BP_SYST 143; PULSE 58; RESP 16; TEMP 98.7; O2SAT 95
[2024-01-18] MEDS: ASCORBIC ACID 500 MG TABLET PO ONE (12:42)
[2024-01-18] MEDS: CHOLECALCIFEROL (VITAMIN D3) 5,000 UNIT TABLET PO ONE (12:42)
[2024-01-18 16:20] VITALS: BP_SYST 143; PULSE 60; RESP 16; TEMP 98.6; O2SAT 97
[2024-01-18 20:00] VITALS: BP_SYST 146; PULSE 69; RESP 16; TEMP 97.7; O2SAT 95
[2024-01-19 01:19] VITALS: BP_SYST 139; PULSE 71; RESP 20; TEMP 97.2; O2SAT 97
[2024-01-19 07:40] VITALS: BP_SYST 154; PULSE 66; RESP 15; TEMP 98.2; O2SAT 98
[2024-01-19 08:19] LABS: BASOPHILS % (AUTO) 0.2 % (0.0-2.0); EOSINOPHILS # (AUTO) 0.1 K/uL (0.0-0.4); EOSINOPHILS % (AUTO) 1.1 % (0.0-4.0); HEMATOCRIT 42.4 % (36-54); HEMOGLOBIN 14.3 g/dL (14.0-18.0); LYMPHOCYTES # (AUTO) 2.4 K/uL (1.0-5.5); LYMPHOCYTES % (AUTO) 36.3 % (20.5-51.5); MEAN CORPUSCULAR HEMOGLOBIN 33 pg (27-31); MEAN CORPUSCULAR HGB CONC 34 % (32-36); MEAN CORPUSCULAR VOLUME 99 fL (79.0-98.0); MONOCYTES # (AUTO) 0.6 K/uL (0.0-1.0); MONOCYTES % (AUTO) 8.6 % (1.7-9.3); NEUTROPHILS # (AUTO) 3.6 K/uL (1.8-7.7); NEUTROPHILS % (AUTO) 53.8 % (40.0-70.0); PLATELET COUNT (AUTO) 143 K/uL (130-430); RED BLOOD CELL COUNT(AUTO) 4.28 MIL/uL (4.2-6.2); RED CELL DISTRIBUTION WIDTH 14.7 % (9.0-15.0); WHITE BLOOD COUNT (AUTO) 6.7 K/uL (4.8-10.8)
[2024-01-19 08:39] LABS: ALANINE AMINOTRANSFERASE 40 U/L (12-78); ALBUMIN 3.1 g/dL (3.4-4.8); ANION GAP 8 (5-15); ASPARTATE AMINOTRANSFERASE 32 U/L (10-37); CALCIUM 7.9 mg/dL (8.4-11.0); CARBON DIOXIDE 28 mmol/L (23-29); CHLORIDE 102 mmol/L (98-107); CREATININE 0.97 mg/dL (0.55-1.30); GLUCOSE 111 mg/dL (74-106); POTASSIUM 3.3 mmol/L (3.5-5.1); SODIUM SERUM 138 mmol/L (136-145); TOTAL BILIRUBIN 0.3 mg/dL (0.0-1.0); TOTAL PROTEIN, SERUM 6.9 g/dL (6.4-8.3); UREA NITROGEN, BLOOD 14 mg/dL (8-21)
[2024-01-19] MEDS: ASCORBIC ACID 500 MG TABLET PO SCH (08:51)
[2024-01-19] MEDS: CHOLECALCIFEROL (VITAMIN D3) 5,000 UNIT TABLET PO SCH (08:51)
[2024-01-19 09:00] VITALS: O2SAT 98
[2024-01-19 12:30] VITALS: BP_SYST 143; PULSE 69; RESP 16; TEMP 98; O2SAT 98
[2024-01-19] MEDS: NORMAL SALINE 5 ML DISP.SYRIN IVF SCH (13:44)
[2024-01-19] MEDS: POTASSIUM CHLORIDE 20 MEQ TABLET.ER PO ONE (13:44)
[2024-01-19 16:44] VITALS: BP_SYST 145; PULSE 67; RESP 17; TEMP 97.6; O2SAT 97
[2024-01-19 20:00] VITALS: BP_SYST 150; PULSE 60; RESP 16; TEMP 98.6; O2SAT 96
[2024-01-20 00:15] VITALS: BP_SYST 154; PULSE 87; RESP 18; TEMP 98.3; O2SAT 98
[2024-01-20 07:56] LABS: BASOPHILS % (AUTO) 0.4 % (0.0-2.0); EOSINOPHILS # (AUTO) 0.2 K/uL (0.0-0.4); EOSINOPHILS % (AUTO) 2.7 % (0.0-4.0); HEMATOCRIT 44.2 % (36-54); HEMOGLOBIN 14.9 g/dL (14.0-18.0); LYMPHOCYTES # (AUTO) 2.7 K/uL (1.0-5.5); LYMPHOCYTES % (AUTO) 33.1 % (20.5-51.5); MEAN CORPUSCULAR HEMOGLOBIN 33 pg (27-31); MEAN CORPUSCULAR HGB CONC 34 % (32-36); MEAN CORPUSCULAR VOLUME 99 fL (79.0-98.0); MONOCYTES # (AUTO) 0.7 K/uL (0.0-1.0); MONOCYTES % (AUTO) 8.4 % (1.7-9.3); NEUTROPHILS # (AUTO) 4.5 K/uL (1.8-7.7); NEUTROPHILS % (AUTO) 55.4 % (40.0-70.0); PLATELET COUNT (AUTO) 146 K/uL (130-430); RED BLOOD CELL COUNT(AUTO) 4.49 MIL/uL (4.2-6.2); RED CELL DISTRIBUTION WIDTH 14.3 % (9.0-15.0); WHITE BLOOD COUNT (AUTO) 8.1 K/uL (4.8-10.8)
[2024-01-20 08:00] VITALS: BP_SYST 156; PULSE 66; RESP 20; TEMP 98.2; O2SAT 99
[2024-01-20 08:02] LABS: ERYTHROCYTE SEDIMENTATION RATE 43 MM/HR (0-15)
[2024-01-20 08:41] LABS: ALANINE AMINOTRANSFERASE 38 U/L (12-78); ALBUMIN 3.1 g/dL (3.4-4.8); ANION GAP 10 (5-15); ASPARTATE AMINOTRANSFERASE 32 U/L (10-37); CALCIUM 8.2 mg/dL (8.4-11.0); CARBON DIOXIDE 26 mmol/L (23-29); CHLORIDE 103 mmol/L (98-107); CREATININE 0.95 mg/dL (0.55-1.30); GLUCOSE 100 mg/dL (74-106); POTASSIUM 4.2 mmol/L (3.5-5.1); SODIUM SERUM 139 mmol/L (136-145); TOTAL BILIRUBIN 0.4 mg/dL (0.0-1.0); UREA NITROGEN, BLOOD 16 mg/dL (8-21)
[2024-01-20] MEDS ORDERED: CHOL500013 PO (10:43)
[2024-01-20] MEDS ORDERED: LOVI60 SUBCUT (10:43)
[2024-01-20 12:06] VITALS: BP_SYST 140; PULSE 57; RESP 17; TEMP 97.1; O2SAT 96
[2024-01-20] MEDS: OFLOXACIN 0.3% OP SCH (14:18)
[2024-01-20] MEDS: EYE OP SCH (14:18)
[2024-01-20 16:19] VITALS: BP_SYST 119; PULSE 54; RESP 18; TEMP 98; O2SAT 95
[2024-01-20 21:59] VITALS: O2SAT 96
[2024-01-21 01:05] VITALS: BP_SYST 145; PULSE 60; RESP 16; TEMP 97.9; O2SAT 98
[2024-01-21 07:37] LABS: BASOPHILS % (AUTO) 0.6 % (0.0-2.0); EOSINOPHILS # (AUTO) 0.4 K/uL (0.0-0.4); EOSINOPHILS % (AUTO) 4.7 % (0.0-4.0); HEMATOCRIT 44.4 % (36-54); HEMOGLOBIN 14.9 g/dL (14.0-18.0); LYMPHOCYTES # (AUTO) 2.3 K/uL (1.0-5.5); MEAN CORPUSCULAR HEMOGLOBIN 33 pg (27-31); MEAN CORPUSCULAR HGB CONC 34 % (32-36); MEAN CORPUSCULAR VOLUME 99 fL (79.0-98.0); MONOCYTES # (AUTO) 0.6 K/uL (0.0-1.0); MONOCYTES % (AUTO) 8.2 % (1.7-9.3); NEUTROPHILS # (AUTO) 4.4 K/uL (1.8-7.7); NEUTROPHILS % (AUTO) 56.5 % (40.0-70.0); PLATELET COUNT (AUTO) 153 K/uL (130-430); RED CELL DISTRIBUTION WIDTH 14.3 % (9.0-15.0); WHITE BLOOD COUNT (AUTO) 7.8 K/uL (4.8-10.8)
[2024-01-21 07:53] LABS: ALANINE AMINOTRANSFERASE 34 U/L (12-78); ANION GAP 12 (5-15); ASPARTATE AMINOTRANSFERASE 26 U/L (10-37); CALCIUM 8.3 mg/dL (8.4-11.0); CARBON DIOXIDE 23 mmol/L (23-29); CHLORIDE 105 mmol/L (98-107); CREATININE 1.05 mg/dL (0.55-1.30); GLUCOSE 90 mg/dL (74-106); POTASSIUM 3.6 mmol/L (3.5-5.1); SODIUM SERUM 140 mmol/L (136-145); TOTAL BILIRUBIN 0.6 mg/dL (0.0-1.0); UREA NITROGEN, BLOOD 21 mg/dL (8-21)
[2024-01-21 08:00] VITALS: BP_SYST 142; PULSE 62; RESP 18; TEMP 98.2; O2SAT 99
[2024-01-21 12:13] VITALS: BP_SYST 130; PULSE 69; RESP 18; TEMP 98.7; O2SAT 99
[2024-01-21 17:21] VITALS: BP_SYST 131; PULSE 77; RESP 18; TEMP 97.7; O2SAT 98
[2024-01-21 18:12] VITALS: BP_SYST 131; PULSE 77; RESP 18; TEMP 97.7; O2SAT 98
== END 2024-01-21 21:35 | disposition home health service (06) | DRG 179 ==
LOC: SED 16:42 → SMU 19:41
PROVIDERS: ADMIT Specialist; ATTEND Specialist
PROC: XW033E5 Introduction of Remdesivir Anti-infective into Peripheral Vein, Percutaneous Approach, New Technology Group 5 (ICD-10-PCS; principal; 2024-01-15)
DX: U07.1 COVID-19 (principal); E86.0 Dehydration; G35 Multiple sclerosis; I10 Essential (primary) hypertension; D69.6 Thrombocytopenia, unspecified; E83.51 Hypocalcemia; E83.52 Hypercalcemia; E87.6 Hypokalemia; E88.09 Other disorders of plasma-protein metabolism, not elsewhere classified; N40.0 Benign prostatic hyperplasia without lower urinary tract symptoms; Z78.9 Other specified health status; Z79.01 Long term (current) use of anticoagulants; Z99.3 Dependence on wheelchair; Z79.899 Other long term (current) drug therapy; Z88.8 Allergy status to other drugs, medicaments and biological substances
CPT/HCPCS: 36415; 70450-TC; 70553; 71045; 80048; 80053; 80076; 81001; 81003; 82140; 83605; 84484; 85025; 85610; 85651; 85730; 87040; 87086; 92610-GN; 93005; 97110-GP; 97116-GP; 97530-GP; 99285; J0696; J1100; J1650; J2470; J7050; J7060